=== PATIENT | male | born 1965 | race Caucasian/White ===

== ENCOUNTER → 2020-04-13 | Outpatient (CLI) | payer OTHER, SELFPAY ==
[~2020-04-13] MED LIST: ATOR1TAB19 PO; KETO10TAB PO; PANT40TA29 PO
== END ==
LOC: M LABSMTC 08:04
PROVIDERS: ATTEND Family Medicine
DX: Z11.59 Encounter for screening for other viral diseases (principal)

== ENCOUNTER 2020-05-11 22:41 | Emergency (ER) | payer OTHER, SELFPAY ==
[~2020-05-11] VITALS: Ht 177.8 cm; Wt 64.8 kg
[2020-05-11 22:41] VITALS: BP 137/93
[2020-05-11] MEDS ORDERED: PANT40TA29 PO (22:58)
[2020-05-11] MEDS ORDERED: ATOR1TAB19 PO (22:58)
--- NOTE | 2020-05-12 02:17 | REPVR ---
PROCEDURE INFORMATION: Exam: CT Head Without Contrast Exam date and time: 05/12/2020 1:38 AM Age: 54 years old Clinical indication: Injury or trauma; Fall; Concussion/head injury; Consciousness not specified; Additional info: Fall, hitting back of head TECHNIQUE: Imaging protocol: Computed tomography of the head without contrast. Radiation optimization: All CT scans at this facility use at least one of these dose optimization techniques: automated exposure control; mA and/or kV adjustment per patient size (includes targeted exams where dose is matched to clinical indication); or iterative reconstruction. COMPARISON: No relevant prior studies available. FINDINGS: Brain: No acute intracranial hemorrhage, midline shift or intracranial mass effect. No cerebral edema. Cerebral ventricles: No hydrocephalus. Bones/joints: Unremarkable. No acute fracture. Paranasal sinuses: Visualized sinuses are unremarkable. No fluid levels. Mastoid air cells: Visualized mastoid air cells are well aerated. Soft tissues: Unremarkable. IMPRESSION: No acute intracranial abnormality. Electronically signed by: Marques Singh On 05/12/2020 02:18:07 AM
[2020-05-12] MEDS ORDERED: KETOROLAC 30 MG/ML 1ML VIAL IM ONE (03:00)
[2020-05-12] MEDS ORDERED: KETO10TAB PO (03:04)
== END 2020-05-12 03:42 | disposition home or self-care (01) ==
LOC: M ED 22:41
DX: S01.01XA Laceration without foreign body of scalp, initial encounter (principal); Y92.009 Unspecified place in unspecified non-institutional (private) residence as the place of occurrence of the external cause; Y93.9 Activity, unspecified; Y99.9 Unspecified external cause status; I95.1 Orthostatic hypotension; F43.10 Post-traumatic stress disorder, unspecified; K21.9 Gastro-esophageal reflux disease without esophagitis
CPT/HCPCS: 12001; 70450; 96372; 99282; J1885

== ENCOUNTER 2020-05-19 10:28 | Emergency (ER) | payer OTHER ==
[~2020-05-19] VITALS: Ht 180.3 cm; Wt 67.9 kg
[2020-05-19 10:29] VITALS: BP 142/96
--- OUTSIDE RECORDS SUMMARY | 2020-05-19 11:22 | CCD ---
Author Author [facility] Address Unknown Phone Unavailable Support Name Relationship Address Phone [place] Next Of Kin [address] [id number] DISABLED Next Of Kin Unknown Unavailable Re-disclosure Warning The records that you are about to access may contain information from federally-assisted alcohol or drug abuse programs. If such information is present, then the following federally mandated warning applies: This information has been disclosed to you from records protected by federal confidentiality rules (42 CFR part 2). The federal rules prohibit you from making any further disclosure of this information unless further disclosure is expressly permitted by the written consent of the person to whom it pertains or as otherwise permitted by 42 CFR part 2. A general authorization for the release of medical or other information is NOT sufficient for this purpose. The Federal rules restrict any use of the information to criminally investigate or prosecute any alcohol or drug abuse patient.The records that you are about to access may contain highly sensitive health information, the redisclosure of which is protected by Article 27-F of the [place] Public Health law. If you continue you may have access to information: Regarding HIV / AIDS; Provided by facilities licensed or operated by the [facility] Office of Mental Health; or Provided by the [facility] Office for People With Developmental Disabilities. If such information is present, then the following [facility] mandated warning applies: This information has been disclosed to you from confidential records which are protected by state law. State law prohibits you from making any further disclosure of this information without the specific written consent of the person to whom it pertains, or as otherwise permitted by law. Any unauthorized further disclosure in violation of state law may result in a fine or residential sentence or both. A general authorization for the release of medical or other information is NOT sufficient authorization for further disc losure. Insurance Providers Payer name Policy type / Coverage type Policy ID Covered libertarian ID Covered libertarian's relationship to harris Policy [employer] Information '[employer] [id number] SELF PAY ONLY [id number] Results ID Date Data Source [id number] 04/13/2020 09:00:00 AM EST [facility] Name Value Range Interpretation Code Description Data Carina rce(s) Supporting Document(s) SARS coronavirus 2 RNA [facility] This lab was ordered by [facility] and reported by [facility]. Procedure
== END 2020-05-19 11:29 | disposition home or self-care (01) ==
LOC: M ED 10:28
DX: Z48.02 Encounter for removal of sutures (principal)